=== PATIENT | female | born 1995 | race Two or more races ===

== ENCOUNTER 2017-01-29 04:43 | Emergency (ER) | payer SELFPAY ==
[2017-01-29 04:58] VITALS: TEMP 97.5; O2SAT 98
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
--- NOTE | 2017-01-29 07:26 | ED PDOC ---
- ECG O2 Sat by Pulse Oximetry: 98 (RA) Pulse Ox Interpretation: Normal Medical Decision Making Medical Decision Making: Receiving Sign Out: Pt signed out to me by Dr. Iyer pending CT report and final disposition. Scribe Attestation: Documented by Aparna Carter acting as a scribe for Darshan Brandt DO. Provider Attestation: All medical record entries made by the Scribe were at my direction and personally dictated by me. I have reviewed the chart and agree that the record accurately reflects my personal performance of the history, physical exam, medical decision making, and the department course for this patient. I have also personally directed, reviewed, and agree with the discharge instructions and disposition. Disposition - Clinical Impression Clinical Impression: Alcohol intoxication, Head injury - POA Present On Arrival: None - Disposition Referrals: Alcoholics Anonymous [Outside] Disposition: Routine/Home Disposition Time: 08:12 Condition: IMPROVED Additional Instructions: Floridalma, thank you for letting us take care of you today. Return to the ER if your symptoms worsen, or if any problems. Do not drink alcohol in excess. Follow up with your primary care provider in a few days for a re-evaluation. Instructions: Head Injury (ED), Alcohol Intoxication (ED) Forms: [employer] (Welsh) Print Language: QATARI Progress Note - Review of Symptoms Events since last encounter: Time: 731 CT Head FINDINGS: Brain: Unremarkable. No hemorrhage. No significant white matter disease. No edema. Ventricles: Unremarkable. No ventriculomegaly. Bones/joints: Unremarkable. No acute fracture. Soft tissues: Unremarkable. Sinuses: Unremarkable as visualized. No acute sinusitis. Mastoid air cells: Unremarkable as visualized. No mastoid effusion. IMPRESSION: Normal head/brain CT. CT C-Spine FINDINGS: Vertebrae: Unremarkable. No acute fracture. Discs/spinal canal/neural foramina: No acute findings. No spinal canal stenosis. Soft tissues: Unremarkable. Lung apices: Unremarkable as visualized. IMPRESSION: Normal cervical spine CT.
[2017-01-29 08:28] VITALS: BP 121/64; PULSE 88; RESP 16
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
== END 2017-01-29 09:13 | disposition home or self-care (01) ==
LOC: H.ER 04:43
DX: F10.129 Alcohol abuse with intoxication, unspecified (principal); S09.90XA Unspecified injury of head, initial encounter; Y04.0XXA Assault by unarmed brawl or fight, initial encounter; Y92.89 Other specified places as the place of occurrence of the external cause
CPT/HCPCS: 70450; 72125; 84703; 99283; G0480